=== PATIENT | male | born 1985 | race Caucasian/White ===

== ENCOUNTER 2020-03-09 16:55 | Emergency (ER) | payer BC, SELFPAY ==
[2020-03-09 16:57] VITALS: BP 146/95; PULSE 117; RESP 16; TEMP 37.2; O2SAT 99; BMI 31.6
--- NOTE | 2020-03-09 17:27 | ED.VISSUMM ---
- ER Visit Summary Date of Service: 03/09/20 Chief Complaint: Left hip pain History of Present Illness: The patient is a 34 M with significant past medical history. Prior hernia surgery as a child. He states for last 3 to 4 months he has had left anterior iliac crest pain. Denies any fall or trauma. Symptoms times he will go a week without any pain. Then it will flareup. Worse with standing sometimes with walking. Denies any fever chills. No abdominal pain. No dysuria. No falls injury or trauma he can remember at all. Physical Examination: Young male no acute distress vital signs stable afebrile. HEENT exam unremarkable. Lungs clear to all station bilaterally. Heart regular rhythm no murmur. Abdomen soft nontender normal bowel sounds no peritoneal signs. No hernia. No mass. Pelvic girdle intact. The only place he describes the pain is iliac crest anteriorly on the left. Is not reproducible. There is no signs of trauma. No ecchymosis or bruising no redness or warmth. I cannot make the pain worse with palpation. He is moving all 4 extremities. Neurovascular intact. Normal motor strength, sensation and range of motion. Back nontender. Spine nontender. Neurologically is awake alert with no focal motor deficits. Test Results: Pelvis x-ray 1 view read by myself and radiologist shows no acute abnormality. Emergency Department Course and Treatment: Patient has left anterior iliac crest pain that is nonreproducible on exam. He has had no trauma. Treatment Plan: Tylenol and/or Motrin for pain. Follow-up with not improving. Disposition: dc Impression: Left anterior iliac crest pain of uncertain etiology This note was generated with [employer] dictation software. It may contain incorrect words, spelling, and punctuation that were not noted in review of the chart prior to signing ED Disposition - Plan for ED Patient: Referrals: Care Physician,No Primary [Primary Care Provider] -
--- NOTE | 2020-03-09 17:30 | RAD_ITS ---
STUDY: X-RAY - PELVIS REASON FOR EXAM: Male, 34 years old. atraumatic left iliac crest pain for 4 months TECHNIQUE: One view of the pelvis was obtained. COMPARISON: None. FINDINGS: There is a non-specific bowel gas pattern. Normal visualized soft tissue structures. No visualized acute fracture or avascular necrosis. No visualized avulsion injuries. Normal bilateral iliac wings, sacroiliac joints and visualized sacrum. Normal visualized bilateral superior and inferior pubic rami. Normal pubic symphysis. Normal ischial tuberosities. Normal visualized right femoral head. Normal right acetabulum. Normal right hip joint. Normal visualized left femoral head. Normal left acetabulum. Normal left hip joint. RAD/Pelvis 1 or 2 Views IMPRESSION: 1. Normal x-ray examination of the pelvis. 2. No visualized acute fracture or avascular necrosis. No visualized avulsion injuries. If symptoms persist consider MRI of the pelvis or affected hip which may detect bone marrow edema and soft tissue/muscle injuries which are not detectable by plain film. Electronically Signed: Prashanth Hercules MD at 17:45 EDT , Service support ,
--- NOTE | 2020-03-09 19:03 | ED.DEP ---
ED Disposition - Plan for ED Patient: Disposition: Home or Assisted Living Referrals: Harris Bishop MD [STAFF PHYSICIAN] - 1 Week if not improving Additional Instructions: X-ray was normal. Ice to the area. Motrin for pain and inflammation. Follow-up if not improving.
== END 2020-03-09 19:09 | disposition home or self-care (01) ==
PROVIDERS: Emergency Provider Emergency Medicine
DX: M25.552 Pain in left hip (principal); Z72.0 Tobacco use
CPT/HCPCS: 72170; 99282

== ENCOUNTER → 2020-03-19 15:27 | Outpatient (CLI) | payer BC, SELFPAY ==
[2020-03-09 16:57] VITALS: BMI 31.6
--- NOTE | 2020-03-19 15:40 | RAD_ITS ---
STUDY: X-RAY - ABDOMEN/PELVIS REASON FOR EXAM: Male, 34 years old. left hip/LLQ pain x 4 weeks, now vomiting x 2 weeks TECHNIQUE: Frontal views of the abdomen COMPARISON: None. FINDINGS: There is a 1 cm dense calcifications projecting over the left flank, possibly renal shadow, with 2 additional smaller, 3-4 mm calcifications. There is a questionable consideration in the right upper quadrant, again possibly projecting over the renal shadow. Pelvis is free of complications. There is no intestinal obstruction. Skeletal structures are intact. RAD/Abdomen Single View IMPRESSION: Possible renal stones, inconclusively evaluated. Recommend CT for definitive assessment if diagnosis of urolithiasis needs to be established. Electronically Signed: Kaylee Green, at 16:22 EDT Tel , Service support ,
[2020-03-19 17:41] LABS: Absolute Lymphocyte Count 2.68 X10^3/uL (0.83-4.51); Absolute Neutrophil Count 4.7 X10^3/uL (2.0-7.7); Basophil# 0.07 X10^3/uL; Basophil% 0.8 % (0-1); Eosinophil# 0.31 X10^3/uL; Eosinophils% 3.7 % (0-5); Hematocrit 43.7 % (40-54); Hemoglobin 14.8 g/dL (13.0-16.5); Lymphocyte # 2.68 X10^3/ul (4.0); Mean Corp Hgb Conc 33.9 g/dL (32-36); Mean Corpuscular Hgb 30.5 pg (27.0-32.0); Mean Corpuscular Volume 89.9 fL (80-94); Mean Platelet Vol. 10.1 fl (6.2-12.0); Monocyte# 0.55 X10^3/uL; Monocyte% 6.6 % (0-10); NRBC Flagged by Analyzer 0 % (0-5); Neutrophil # 4.73 X10^3/uL (2.7-7.7); Neutrophil % 56.5 % (47-70); Platelet Count 261 K/mm3 (150-450); RBC Distribution Width CV 11.9 % (11.6-14.6); RBC Distribution Width SD 39.6 fl (35.1-43.9); Red Blood Count 4.86 M/mm3 (4.6-6.2); White Blood Count 8.4 K/mm3 (4.4-11.0)
[2020-03-19 17:59] LABS: ALB/GLOB Ratio 1.3 RATIO (0.9-2.4); AST(SGOT) 23 U/L (15-37); Alanine Aminotransfer ALT/SGPT 37 U/L (16-61); Albumin, Serum 4.1 g/dL (3.2-5.0); Alkaline Phosphatase 71 U/L (45-117); Anion Gap 5 (5-15); BUN 15 mg/dL (7-18); BUN/Creat Ratio 15.1 RATIO (10-20); Calcium,Total 8.6 mg/dL (8.5-10.1); Chloride 105 mmol/L (98-107); Creatinine, Serum 0.99 mg/dL (0.70-1.30); EST Glomerular Filtration Rate 91 mL/min (>60); Est Glom Filt Rate - Afr Amer 111 mL/min (>60); Globulin 3.1 g/dL (2.2-4.2); Glucose 101 mg/dL (74-106); Potassium 3.7 mmol/L (3.5-5.1); Protein, Total 7.2 g/dL (6.4-8.2); Sodium Level 138 mmol/L (136-145)
== END ==
PROVIDERS: PCP Family Medicine; Referring Provider Family Medicine; Visit Provider Family Medicine
DX: R10.2 Pelvic and perineal pain (principal)
CPT/HCPCS: 36415; 74018; 80053; 85025; 87086

== ENCOUNTER → 2020-03-26 17:36 | Outpatient (CLI) | payer BC, SELFPAY ==
[2020-03-09 16:57] VITALS: BMI 31.6
--- NOTE | 2020-03-26 17:43 | CT_ITS ---
STUDY: CT ABDOMEN AND PELVIS WITHOUT CONTRAST REASON FOR EXAM: Male, 34 years old. Bilateral flank pain- left greater than right.No hematuria. Abnormal xray RADIATION DOSAGE (If Supplied By Facility): CTDIvol = ( 11.39 ) mGy, DLP = ( 651.80 ) mGycm TECHNIQUE: Transaxial images were obtained from the dome of the diaphragm to the symphysis pubis without oral contrast, and without intravenous contrast. Sagittal and coronal images were reconstructed. Individualized dose optimization techniques were used for this CT. COMPARISON: None. FINDINGS: The visualized lung bases are unremarkable. The visualized portions of the heart are within normal limits. Normal liver. Normal gallbladder and extrahepatic biliary system. Normal spleen. Normal pancreas. Normal bilateral adrenal glands. Bilateral nonobstructing renal stones. 13 x 8 mm stone in the left renal sinus without evidence of acute obstruction. Bilateral renal cysts. Normal visualized stomach. Normal small intestine. Normal colon. The appendix is visualized and appears normal. Normal abdominal aorta. Normal inferior vena cava. Normal retroperitoneum. Normal urinary bladder. Normal abdominal wall. Normal osseous structures. CT/Abdomen/Pelvis without Cont IMPRESSION: Bilateral nonobstructing renal stones. 13 x 8 mm stone in the left renal sinus without evidence of acute obstruction. No evidence of appendicitis, acute intestinal pathology, or acute obstructive uropathy. Electronically Signed: Dagoberto Waller MD at 18:30 EDT Tel , Service support ,
== END ==
PROVIDERS: PCP Family Medicine; Referring Provider Family Medicine; Visit Provider Family Medicine
DX: N20.0 Calculus of kidney (principal)
CPT/HCPCS: 74176

== ENCOUNTER 2020-04-02 12:50 | Day surgery (SDC) | payer BC, SELFPAY ==
--- NOTE | 2020-04-02 12:51 | RAD_ITS ---
STUDY: X-RAY - ABDOMEN/PELVIS REASON FOR EXAM: Male, 34 years old. PAT, left kidney stone TECHNIQUE: Single AP view of the abdomen / pelvis. COMPARISON: Comparison is made with prior study dated 03/19/2020. FINDINGS: Normal visualized lung bases. There is an abundance of fecal material throughout the colon. Stable bilateral intrarenal calcifications. The largest calcification is in the region of the pelvis of the left kidney and this measures 1.3 cm. Normal soft tissue structures. Normal visualized osseous structures. RAD/Abdomen Single View IMPRESSION: Stable bilateral intrarenal calculi. There is a 1.3 cm calculus in the left renal pelvis. Electronically Signed: Eldon Salomon, at 15:14 EDT , Service support ,
[2020-04-02 13:12] VITALS: BP 151/84; PULSE 80; RESP 17; TEMP 36.8; O2SAT 100; BMI 31.1
[2020-04-02] MEDS: Lactated Ringers 1,000 ML 100 ML IV (13:33)
[2020-04-02] MEDS: Cefazolin 2 GM in 0.9% Normal Saline 100 ML IV (15:54)
--- NOTE | 2020-04-02 16:00 | PCM.HP.STD ---
History of Present Illness Date of Admission: 04/02/20 Chief Complaint: Bilateral ureteral and renal calculi The patient is a 34 year old male who has a very large stone in the left renal pelvis and multiple stone fragments left kidney also has a fragment in the right kidney in the proximal ureter plan to proceed with shockwave lithotripsy of stones on both sides and the stent on the left side. Past Medical History Allergies No Known Allergies Allergy (Verified 04/02/20 13:04) Home Medications: Ambulatory Orders Medication Instructions Recorded Hydrocodone Bitart/Apap 5-325 1 tab PO Q4H PRN PRN 03/31/20 [[place] 5MG-325MG] Tamsulosin HCl [Flomax] 0.4 mg PO DAILY 03/31/20 Ciprofloxacin [Cipro] 500 mg PO BID #10 tab 04/02/20 Hydrocodone/Acetaminophen [[place] 1 ea PO Q4H PRN PRN 5 Days #20 tab 04/02/20 5-325 Tablet] Surgical History: no surgical history Smoking Status: Current every day smoker Tobacco Use: Cigarettes Review of Systems Constitutional: Denies: Chills, Fever, Weight Change HEENT: Denies: Head Aches, Sinus Congestion, Sinus Drainage Cardiovascular: Denies: Chest Pain, Palpitations Respiratory: Denies: Cough, Shortness of breath at rest, Sputum production Gastrointestinal: Denies: Abdominal Pain, Nausea, Vomiting Genitourinary: Denies: Dysuria Musculoskeletal: Denies: Joint Pain, Joint Tenderness Skin: Denies: Rash, Wounds Neurological: Denies: Numbness, Tingling, Focal weakness Psychiatric: Denies: Anxiety, Depression, Homicidal Ideations, Suicidal Ideations Hematologic/ Lymphatic: Denies: Easy Bruising, Easy Bleeding VTE Information - Inpt Only VTE Present on Admission: No VTE Mechan Device Prophylaxis: SCD's - Physical Exam Vitals/I&O's: Vital Signs Temp Pulse Resp BP Pulse Ox 98.2 F 80 17 151/84 H 100 04/02/20 13:12 04/02/20 13:12 04/02/20 13:12 04/02/20 13:12 04/02/20 13:12 Oxygen Delivery Method Room Air Weight: 101.514 kg Body Mass Index (BMI) 31.1 General: Alert, Oriented x3, Cooperative HEENT: Atraumatic, PERRLA, EOMI, Normocephalic Neck: Supple, No JVD, Negative Carotid Bruits Lungs: Clear to auscultation, Normal air movement Cardiovascular: Regular rate, No murmurs Abdomen: Bowel Sounds Present, Soft, Non Tender Extremities: No edema, Capillary Refill Less than 3 Seconds Skin: No rashes, No breakdown Musculoskeletal: No Tenderness to Palpation of Joints or Extremities Neurological: Cranial nerves II-XII grossly intact Psych/Mental Status: Normal Affect, Appropriate Current Medications Lactated Ringer's () 1,000 mls @ 100 mls/hr IV .Q10H ROBERT Last Admin: 04/02/20 13:33 Dose: 100 mls/hr Documented by: Assessment/Plan Plan for treatment of the stones and stent.
--- NOTE | 2020-04-02 16:01 | PCM.DC.URO ---
Discharge Diet: Light diet - advance as tolerated Discharge Activity: Return to Normal Activity, May not drive while taking narcotic pain medications. Call your doctor if your incision/area has: Sudden Increased Bleeding Call your doctor if you observe: Fever of 101 or Higher Suture Line Care: Avoid Pulling/Pushing, Avoid Pinching/Bending Allergies/Adverse Reactions: Allergies No Known Allergies Allergy (Verified 04/02/20 13:04) Medications to take at Discharge Hydrocodone Bitart/Apap 5-325 [[place] 5MG-325MG] 1 tab PO Q4H PRN PRN 03/31/20 Tamsulosin HCl [Flomax] 0.4 mg PO DAILY 03/31/20 Ciprofloxacin [Cipro] 500 mg PO BID #10 tab 04/02/20 Hydrocodone/Acetaminophen [[place] 5-325 Tablet] 1 ea PO Q4H PRN PRN 5 Days #20 tab 04/02/20 The following prescriptions were given: Ciprofloxacin [Cipro] 500 mg PO BID #10 tab Transmission Status: Pending to [facility] Hydrocodone/Acetaminophen [[place] 5-325 Tablet] 1 ea PO Q4H PRN PRN 5 Days #20 tab PRN Reason: Pain Score 1-10/10 Prescription Printed Primary Care Physician: Harris Bishop MD [Primary Care Provider] - Test Results: Test results from this visit will be discussed in further detail at your follow-up appointment, if applicable. Please Follow Up With: Shantanu Hernandez MD When: please call to make an appointment.
--- NOTE | 2020-04-02 17:10 | PCM.OPRPT ---
Report of Operation Date of Procedure: 04/02/20 Pre-Operative Diagnosis: Bilateral renal calculi, right 6 mm left 1.3 cm Post-Operative Diagnosis: Same Surgery/Procedure Performed:: Cystoscopy left stent placement left extracorporeal shockwave lithotripsy. And right extracorporeal shockwave lithotripsy Description of Surgical Findings:: 34-year-old male presents to the operating room for treatment of his kidney stones he was taken back to the operating room after smooth induction of general anesthesia he was placed in dorsolithotomy position, the penis and testicles were prepped and draped in usual sterile fashion, went into the bladder with a 21 [place] rigid cystourethroscope identified the left ureteral orifice and advanced a wire up to the left kidney and over the wire place a stent up in the left kidney once the stent coiled in the kidney and bladder in good position we then repositioned the patient on the lithotripter table there was a very large 1.3 cm stone in the left renal pelvis and a total of 3000 shockwaves at a rate of 90/min were delivered to the stone between 5 to 7 kV. The stone was monitored with fluoroscopy during the treatments. At the end of the treatment cycle the stone had broken up quite well however there is still multiple fragments and she may need a second treatment for the other fragments that had not broken up. We then went to the right side and we found a 6 mm stone in the midpole of the right kidney delivered a total of 1300 shocks to the right kidney stone the stone broke up really well there is a smaller fragment. We did not place a stent on the right side. Patient anesthetic is currently being reversed plan to see him back next week with a KUB and will plan to see what other treatments are necessary it is possible he may need more treatments on the left side since she has such a high stone burden. Type of Anesthesia:: General Drains: stent left side - Admit VTE Documentation VTE Present on Admission: No VTE Mechan Device Prophylaxis: SCD's
[2020-04-02 17:17] VITALS: BP 116/77; BP 151/84; PULSE 60; RESP 16; TEMP 36.7; O2SAT 95
[2020-04-02] MEDS: Ketorolac 30 MG/ML Syringe IV (17:24)
[2020-04-02 17:30] VITALS: BP 102/68; BP 151/84; PULSE 55; RESP 16; O2SAT 99
[2020-04-02 17:45] VITALS: BP 118/76; BP 151/84; PULSE 57; RESP 16; TEMP 36.6; O2SAT 98
[2020-04-02 18:07] VITALS: BP 151/84
== END 2020-04-02 18:13 | disposition home or self-care (01) ==
LOC: SDC 12:54 → AC 12:55
PROVIDERS: Anesthesiology; PCP Family Medicine; Referring Provider Urology; Visit Provider Urology
PROC: (CPT 50590; principal; 2020-04-02 15:00)
DX: N20.0 Calculus of kidney (principal); F17.210 Nicotine dependence, cigarettes, uncomplicated; Z87.442 Personal history of urinary calculi; Z20.828 Contact with and (suspected) exposure to other viral communicable diseases
CPT/HCPCS: 52356; 74018; 87635; 94799; J7120; C1769; C2617; J2405; U0003

== ENCOUNTER → 2020-04-08 08:01 | Outpatient (CLI) | payer BC, SELFPAY ==
[2020-04-02 13:12] VITALS: BMI 31.1
--- NOTE | 2020-04-08 08:15 | RAD_ITS ---
STUDY: X-RAY - ABDOMEN/PELVIS REASON FOR EXAM: Male, 34 years old. Kidney stones mostly left, pain on and off, pt states lithotripsy 1 week ago TECHNIQUE: Single AP view of the abdomen / pelvis. COMPARISON: Comparison is made with prior examination dated 04/02/2020. FINDINGS: Normal visualized lung bases. There is a moderate amount of colonic fecal material. A left-sided double-J stent catheter has been placed. The previously seen calculus in the lower pole calyx of the left kidney has decreased in size. It presently measures 9.7 mm. Stable small calculi are seen in the upper and midportion of left kidney as well as in the upper calyx of the right kidney. Normal soft tissue structures. Normal visualized osseous structures. RAD/Abdomen Single View IMPRESSION: Interval placement of a left-sided double-J stent catheter with decreased size of the calculus in the lower pole of the left kidney. The remainder of the examination is unchanged. Electronically Signed: Eldon Salomon, at 10:10 EDT , Service support ,
== END ==
PROVIDERS: PCP Family Medicine; Referring Provider Urology; Visit Provider Urology
DX: N20.0 Calculus of kidney (principal)
CPT/HCPCS: 74018

== ENCOUNTER 2020-04-16 09:58 | Day surgery (SDC) | payer BC, SELFPAY ==
[2020-04-15 20:56] LABS: Probe Check PASS; Specimen Processing Control PASS
--- NOTE | 2020-04-16 10:06 | RAD_ITS ---
STUDY: X-RAY - ABDOMEN/PELVIS REASON FOR EXAM: Male, 34 years old. PRE OP FOR LEFT SIDE STONE ESWL TECHNIQUE: Single AP view of the abdomen / pelvis. COMPARISON: Comparison is made with prior study dated 04/08/2020. FINDINGS: Normal visualized lung bases. There is a moderate amount of colonic fecal material. Once again, there is a 1 cm calculus in the inferior pole calyx of the left kidney. A 3 mm calculus is also seen in the midpole of the left kidney. A double-J stent catheter is seen with the proximal tip in the left renal pelvis and the distal tip in the bladder. Normal soft tissue structures. Normal visualized osseous structures. RAD/Abdomen Single View IMPRESSION: A left-sided double-J stent catheter is seen. Stable left renal calcifications with a 1 cm calculus in the lower pole calyx. Electronically Signed: Eldon Salomon, at 10:47 EDT , Service support ,
[2020-04-16 10:37] VITALS: BP 149/83; PULSE 80; RESP 16; TEMP 36.9; O2SAT 100; BMI 30.9
[2020-04-16] MEDS: Lactated Ringers 1,000 ML 100 ML IV (10:45)
[2020-04-16] MEDS: Cefazolin 2 GM in 0.9% Normal Saline 100 ML IV (12:19)
--- NOTE | 2020-04-16 12:23 | PCM.HP.STD ---
History of Present Illness Date of Admission: 04/16/20 Chief Complaint: Left kidney stone status post ESWL The patient is a 34 year old male with a very large stone in the left kidney underwent stent placement and shockwave lithotripsy on KUB still has some remaining fragments in the kidney today with plan to treat this with shockwave lithotripsy and plan to remove the stent. Past Medical History Allergies No Known Allergies Allergy (Verified 04/16/20 10:35) Home Medications: Ambulatory Orders Medication Instructions Recorded Tamsulosin HCl [Flomax] 0.4 mg PO DAILY 03/31/20 Surgical History: no surgical history Smoking Status: Current every day smoker Tobacco Use: Cigarettes Review of Systems Constitutional: Denies: Chills, Fever, Weight Change HEENT: Denies: Head Aches, Sinus Congestion, Sinus Drainage Cardiovascular: Denies: Chest Pain, Palpitations Respiratory: Denies: Cough, Shortness of breath at rest, Sputum production Gastrointestinal: Denies: Abdominal Pain, Nausea, Vomiting Genitourinary: Denies: Dysuria Musculoskeletal: Denies: Joint Pain, Joint Tenderness Skin: Denies: Rash, Wounds Neurological: Denies: Numbness, Tingling, Focal weakness Psychiatric: Denies: Anxiety, Depression, Homicidal Ideations, Suicidal Ideations Hematologic/ Lymphatic: Denies: Easy Bruising, Easy Bleeding VTE Information - Inpt Only VTE Present on Admission: No - Physical Exam Vitals/I&O's: Vital Signs Temp Pulse Resp BP Pulse Ox 98.4 F 80 16 149/83 H 100 04/16/20 10:37 04/16/20 10:37 04/16/20 10:37 04/16/20 10:37 04/16/20 10:37 Oxygen Delivery Method Room Air Weight: 100.6 kg Body Mass Index (BMI) 30.9 General: Alert, Oriented x3, Cooperative HEENT: Atraumatic, PERRLA, EOMI, Normocephalic Neck: Supple, No JVD, Negative Carotid Bruits Lungs: Clear to auscultation, Normal air movement Cardiovascular: Regular rate, No murmurs Abdomen: Bowel Sounds Present, Soft, Non Tender Extremities: No edema, Capillary Refill Less than 3 Seconds Skin: No rashes, No breakdown Musculoskeletal: No Tenderness to Palpation of Joints or Extremities Neurological: Cranial nerves II-XII grossly intact Psych/Mental Status: Normal Affect, Appropriate Laboratory Results 04/15/20 17:30: COVID-19 ([facility]) Negative Current Medications Lactated Ringer's () 1,000 mls @ 100 mls/hr IV .Q10H ROBERT Last Admin: 04/16/20 10:45 Dose: 100 mls/hr Documented by: Assessment/Plan Plan to proceed with shockwave lithotripsy and stent removal
--- NOTE | 2020-04-16 12:27 | DCINST_ITS ---
Discharge Diet: Light diet - advance as tolerated Discharge Activity: Return to Normal Activity Allergies/Adverse Reactions: Allergies No Known Allergies Allergy (Verified 04/16/20 10:35) Medications to take at Discharge Tamsulosin HCl [Flomax] 0.4 mg PO DAILY 03/31/20 Hydrocodone Bitart/Apap 5-325 [[place] 5MG-325MG] 1 tablet PO Q4H PRN PRN 5 Days #20 tablet 04/16/20 The following prescriptions were given: Hydrocodone Bitart/Apap 5-325 [[place] 5MG-325MG] 1 tablet PO Q4H PRN PRN 5 Days #20 tablet PRN Reason: Pain Transmission Status: Received by [facility] Primary Care Physician: Harris Bishop MD [Primary Care Provider] - Test Results: Test results from this visit will be discussed in further detail at your follow- up appointment, if applicable. Please Follow Up With: Shantanu Hernandez MD When: in 2 weeks, please call to make an appointment.
--- NOTE | 2020-04-16 13:23 | PCM.OPRPT ---
Report of Operation Date of Procedure: 04/16/20 Pre-Operative Diagnosis: Left renal calculi status post prior treatment with shockwave lithotripsy and stent Post-Operative Diagnosis: Same second stage procedure Surgery/Procedure Performed:: Second stage shockwave lithotripsy and stent removal Description of Surgical Findings:: 34-year-old male with a very large stone in the left kidney and underwent cystoscopy and left stent placement and shockwave lithotripsy. Came back to the office still has significant fragments in the upper pole in the midpole lower pole the left kidney so we can proceed with a second stage shockwave lithotripsy. Patient was taken back to the operating room after smooth induction of general anesthesia he was placed supine on the table we then identified the stent and identified a few fragments in the upper pole the kidney we treated these with shockwave lithotripsy and then he had a large collection of fragments of the lower pole the left kidney and we delivered a total of 3000 shockwaves to all the fragments. At the end of the treatment cycle there was a large collection of small broken up stone the lower pole of the left kidney we then prepped and draped the penis in usual sterile fashion in the bladder with a flexible cystoscope and used a grasper to grab the stent and pulled it out. Patient anesthetic was reversed plan to see him back in about 1 month with a KUB for follow-up on the stones. Type of Anesthesia:: General Drains: stent removed. - Admit VTE Documentation VTE Present on Admission: No VTE Mechan Device Prophylaxis: SCD's
[2020-04-16 13:35] VITALS: BP 149/83; BP 153/80; PULSE 66; RESP 16; TEMP 37.2; O2SAT 100
[2020-04-16 13:45] VITALS: BP 128/85; BP 149/83; PULSE 68; RESP 16; O2SAT 99
[2020-04-16] MEDS: Ketorolac 15 MG/ML Vial IV (13:52)
[2020-04-16 14:00] VITALS: BP 137/83; BP 149/83; PULSE 50; RESP 16; TEMP 36.8; O2SAT 97
[2020-04-16 14:34] VITALS: BP 147/94; BP 149/83; PULSE 55; RESP 16; TEMP 36.4; O2SAT 100
== END 2020-04-16 14:37 | disposition home or self-care (01) ==
LOC: SDC 09:58 → AC 10:03
PROVIDERS: Anesthesiology; PCP Family Medicine; Referring Provider Urology; Visit Provider Urology
PROC: (CPT 50590; principal; 2020-04-16 12:50)
DX: N20.0 Calculus of kidney (principal); Z11.59 Encounter for screening for other viral diseases; F17.210 Nicotine dependence, cigarettes, uncomplicated; Z79.899 Other long term (current) drug therapy
CPT/HCPCS: 00873; 50590; 52310; 74018; 87635; 94799; J7120; J2405; U0003

== ENCOUNTER → 2020-05-06 14:46 | Outpatient (CLI) | payer BC, SELFPAY ==
[2020-04-16 10:37] VITALS: BMI 30.9
--- NOTE | 2020-05-06 14:55 | RAD_ITS ---
STUDY: X-RAY - ABDOMEN/PELVIS REASON FOR EXAM: Male, 34 years old. Follow up left sided kidney stone TECHNIQUE: Frontal views COMPARISON: None. FINDINGS: Normal visualized lung bases. There is an unremarkable bowel gas pattern. There is no demonstrated free abdominal air. 9 mm calculus over the lower pole of the left kidney is noted. Normal soft tissue structures. Normal visualized osseous structures. RAD/Abdomen Single View IMPRESSION: Left lower pole renal calculus. Electronically Signed: Alirio Poon DO at 17:48 EDT Tel [phone], Service support ,
== END ==
PROVIDERS: PCP Family Medicine; Referring Provider Urology; Visit Provider Urology
DX: N20.0 Calculus of kidney (principal)
CPT/HCPCS: 74018